=== PATIENT | male | born 1950 | race Caucasian/White ===

== ENCOUNTER 2022-12-27 05:28 | Outpatient (CLI) | payer MEDICARE, OTHER ==
[~2022-12-27] VITALS: Ht 180.3 cm; Wt 94.5 kg
[~2022-12-27 05:28] MED LIST: ACHD5005; ALBU8.5H4 IH; ASCO500T20 GT; ASP81TEC PO; ASPI-1238 PO; BENZ100C18 PO; CARV12.5 PO; CARV25TA PO; CHOL500049 PO; CIPR-225 PO; CLPD75T PO; CNC1KV IJ; D50KC PO; FENO145T PO; FENO145T2 PO; FENO145T26 PO; HYDR-3455 PO; LRT10T; MAGN400T39 PO; MELO7.5T46 PO; MULT-1029 PO; MULT-1030 PO; OMEG-131 PO; OMEG1CAP51 PO; RT-ALBUINH IH; SERT50TA9 PO; SILD100T PO; SITA1TAB2 PO; SITA1TAB6 PO; SMV10T PO; TEST90SO TD; TRM50T PO; UBID1CAP51 PO; UBID1CAP53 PO; VITA-198 PO; VNL75T PO; ZINC50TA51 PO
[2022-12-27] MEDS ORDERED: NITR0.4T39 SL (16:26)
[2022-12-27] MEDS ORDERED: HYDR500C2 PO ×2 (16:26)
[2022-12-27] MEDS ORDERED: ROSU40TA23 PO (16:26)
[2022-12-27] MEDS ORDERED: DOXY100T2 PO (16:26)
[2022-12-27] MEDS ORDERED: FLUT1BLS3 IH (16:26)
[2022-12-27] MEDS ORDERED: LOSA50TA63 PO (16:26)
== END 2022-12-27 17:00 | disposition home or self-care (01) ==
LOC: EDBD 05:28 → PREOP 05:28
PROVIDERS: ATTEND Otolaryngology Otolaryngology/Facial Plastic Surgery
DX: Z01.818 Encounter for other preprocedural examination (principal)

== ENCOUNTER 2023-01-03 06:16 | Day surgery (SDC) | payer MEDICARE, OTHER ==
[2023-01-03] VITALS (9 sets, daily range): BP systolic 81–117; BP diastolic 40–65
[~2023-01-03] VITALS: Ht 180.3 cm; Wt 94.5 kg
[~2023-01-03 06:16] MED LIST changes: +DOXY100T2 PO; +FLUT1BLS3 IH; +HYDR500C2 PO; +LOSA50TA63 PO; +NITR0.4T39 SL; +ROSU40TA23 PO
--- NOTE | 2023-01-03 06:53 | Progress Note-Pre Operative ---
Pre-Operative Progress Note Date of Available H&P: Jan 03, 2023 Date H&P Reviewed: Jan 03, 2023 Time H&P Reviewed: 06:30 History & Physical: H&P Reviewed, Patient Examed, No changes noted Changes from last HP none Pre-Operative Diagnosis: Right Vocal crod Lesion, Hoarseness ISAIAH SHELBY MD Jan 03, 2023 06:53
--- NOTE | 2023-01-03 06:54 | Progress Note-Post Operative ---
Post-Operative Progess Note Surgeon (s)/Health And Fitness Professor (s) Surgeon ISAIAH SHELBY MD Health And Fitness Professor n/a Pre-Operative Diagnosis Right Vocal crod Lesion, Hoarseness Post-Operative Diagnosis same Post-Op Procedure Note Date of Procedure: Jan 03, 2023 Name of Procedure Performed: Direct Laryngosocpy with REmoval of Right Vocal Cord Lesion Description & Findings Description and Findings: n/a Anesthesia Type get Estimated Blood Loss minimal Packing none. Specimen(s) collected/removed right vocal cord lesion to pathology ISAIAH SHELBY MD Jan 03, 2023 06:54
[2023-01-03] MEDS ORDERED: PROMETHAZINE INJ 25 MG/ML VIAL IV PRN (07:00)
[2023-01-03] MEDS ORDERED: HYDROcodone/ACETAMINOPHEN 5 MG/325 MG TABLET PO PRN (07:00)
[2023-01-03 07:20] LABS: POTASSIUM 4.3 MMOL/L (3.6-5.0)
[2023-01-03 07:21] LABS: CALCIUM 9.6 MG/DL (8.5-10.1)
[2023-01-03 07:24] LABS: BASOPHILS # (AUTO) 0.1 10^3/uL (0.0-0.1); BASOPHILS % (AUTO) 1 % (0-10); EOSINOPHILS # (AUTO) 0.2 10^3/uL (0.0-0.3); EOSINOPHILS % (AUTO) 2 % (0-10); HEMATOCRIT 42 % (40-54); HEMOGLOBIN 13.8 g/dL (13.3-17.7); LYMPHOCYTES # (AUTO) 1.6 10^3/uL (1.0-4.0); LYMPHOCYTES % (AUTO) 21 % (12-44); MEAN CORPUSCULAR HEMOGLOBIN 36 pg (25-34); MEAN CORPUSCULAR HGB CONC 33 g/dL (32-36); MEAN CORPUSCULAR VOLUME 109 fL (80-99); MEAN PLATELET VOLUME 9.9 fL (9.0-12.2); MONOCYTES # (AUTO) 0.6 10^3/uL (0.0-1.0); MONOCYTES % (AUTO) 8 % (0-12); NEUTROPHILS # (AUTO) 5.1 10^3/uL (1.8-7.8); NEUTROPHILS % (AUTO) 66 % (42-75); PLATELET COUNT 325 10^3/uL (130-400); WHITE BLOOD COUNT 7.7 10^3/uL (4.3-11.0)
[2023-01-03 07:26] LABS: CREATININE SERUM 1.2 MG/DL (0.60-1.30)
[2023-01-03] MEDS ORDERED: LACTATED RINGERS 1,000 ML 1,000 ML IV PRN (07:30)
[2023-01-03] MEDS ORDERED: SEVOFLURANE (ULTANE) 15 ML INHAL SOLN ONE (07:34)
[2023-01-03] MEDS ORDERED: proPOfol INJECTION 200 MG/20 ML VIAL IV ONE (07:34)
[2023-01-03] MEDS ORDERED: LIDOCAINE PF 2% 5 ML VIAL ONE (07:34)
[2023-01-03] MEDS ORDERED: ONDANSETRON INJECTION 4 MG/2 ML (SDV) ONE (07:34)
[2023-01-03] MEDS ORDERED: fentaNYL INJECTION 100 MCG/2 ML VIAL ONE (07:35)
[2023-01-03] MEDS ORDERED: MIDAZOLAM INJ 2 MG/2 ML VIAL ONE ×2 (07:35→07:37)
[2023-01-03] MEDS ORDERED: LIDOCAINE 1% w/EPI 1:100,000 20 ML VIAL ONE (07:41)
[2023-01-03] MEDS ORDERED: ONDANSETRON INJECTION 4 MG/2 ML (SDV) IVP PRN (07:45)
[2023-01-03] MEDS ORDERED: MEPERIDINE INJ 50 MG/ML VIAL IVP ONE (07:45)
[2023-01-03] MEDS ORDERED: morphine INJ 10 MG/ML 1ML (SYR OR VIAL) IVP ONE (07:45)
[2023-01-03] MEDS ORDERED: fentaNYL INJECTION 100 MCG/2 ML VIAL IVP ONE (07:45)
[2023-01-03] MEDS ORDERED: dexAMETHasone INJ 10 MG/ML 1 ML VIAL ONE (07:59)
[2023-01-03] MEDS ORDERED: PHENYLEPHRINE 100 MCG/ML 10 ML (ANESTHESIA) SYR ONE (08:04)
--- NOTE | 2023-01-03 08:19 | Anesthesia-General Post-Op ---
General Patient Condition Mental Status/LOC: Same as Preop Cardiovascular: Satisfactory Nausea/Vomiting: Absent Respiratory: Satisfactory Pain: Controlled Complications: Absent Post Op Complications Complications None Follow Up Care/Instructions Patient Instructions None needed. Anesthesia/Patient Condition Patient Condition Patient is doing well, no complaints, stable vital signs, no apparent adverse anesthesia problems. No complications reported per nursing. BHARAT POOLE CRNA Jan 03, 2023 08:19
[2023-01-03] MEDS ORDERED: SUCCINYLCHOLINE INJ 20 MG/1 ML 10 ML VIAL ONE (08:24)
[2023-01-03] MEDS ORDERED: ACHD5005 PO (09:16)
== END 2023-01-03 10:04 ==
LOC: EDBD → SDC 06:16
PROVIDERS: ATTEND Otolaryngology Otolaryngology/Facial Plastic Surgery
DX: J38.3 Other diseases of vocal cords (principal); R49.0 Dysphonia; E66.9 Obesity, unspecified; F17.210 Nicotine dependence, cigarettes, uncomplicated; Z68.29 Body mass index [BMI] 29.0-29.9, adult
CPT/HCPCS: 36415; 80048; 82947; 85025; 87081; 88305; 93005

== ENCOUNTER → 2023-01-15 | Outpatient (CLI) | payer MEDICARE, OTHER ==
[~2023-01-15] MED LIST changes: +ACHD5005 PO
--- NOTE | 2023-01-15 11:50 | Diagnostic Imaging Report ---
CT Lung Screening INDICATION:Screening for lung cancer, 40 pack year history of smoking, current smoker TECHNIQUE: Noncontrast, low-dose CT imaging performed according to the lung cancer screening protocol. Auto Exposure Controls were utilize during the CT exam to meet ALARA standards for radiation dose reduction. COMPARISON:None available, baseline examination. FINDINGS:No pathologically enlarged lymph nodes within the chest. Advanced coronary artery calcifications versus stents. Additional mild scattered vascular calcifications also noted. No aneurysmal dilatation of the thoracic aorta. The heart is within normal limits in size. No significant pericardial effusion. No pleural effusion. The trachea is patent. No pneumothorax. Mild background emphysematous changes. Subpleural reticular opacities are present. Calcified granuloma within the left upper lobe. 0.6 x 0.5 cm pleural-based left lower lobe pulmonary nodule, series 2, image 100. 0.6 x 0.4 cm right lower lobe pulmonary nodule, series 2, image 168.Cholecystectomy. The visualized upper abdomen is otherwise unremarkable. Scattered osseous degenerative changes without acute osseous abnormality. IMPRESSION:Mild background fibroemphysematous changes with associated sub-0.6 cm bilateral pulmonary nodules. Coronary artery stents versus advanced calcifications within the coronary arteries. LUNG-RADS CATEGORY:2: Benign appearance or behavior MODIFIER:S: Mild background fibroemphysematous changes Followup: Low-dose CT of the chest in 12 months. Dictated by: Dictated on workstation # [id number]
== END ==
LOC: RAD 10:31
PROVIDERS: ATTEND Family Medicine
DX: Z12.2 Encounter for screening for malignant neoplasm of respiratory organs (principal); J43.9 Emphysema, unspecified; R91.8 Other nonspecific abnormal finding of lung field; F17.200 Nicotine dependence, unspecified, uncomplicated
CPT/HCPCS: 71271

== ENCOUNTER 2023-03-04 10:14 | Outpatient (RCR) | payer MEDICARE, OTHER ==
[2023-02-27 15:46] LABS: BASOPHILS # (AUTO) 0.1 10^3/uL (0.0-0.1); BASOPHILS % (AUTO) 1 % (0-10); EOSINOPHILS # (AUTO) 0.2 10^3/uL (0.0-0.3); EOSINOPHILS % (AUTO) 2 % (0-10); HEMATOCRIT 39 % (40-54); HEMOGLOBIN 13.1 g/dL (13.3-17.7); LYMPHOCYTES % (AUTO) 21 % (12-44); MEAN CORPUSCULAR HEMOGLOBIN 36 pg (25-34); MEAN CORPUSCULAR HGB CONC 33 g/dL (32-36); MEAN CORPUSCULAR VOLUME 109 fL (80-99); MEAN PLATELET VOLUME 9.9 fL (9.0-12.2); MONOCYTES # (AUTO) 0.7 10^3/uL (0.0-1.0); MONOCYTES % (AUTO) 7 % (0-12); NEUTROPHILS # (AUTO) 6.6 10^3/uL (1.8-7.8); NEUTROPHILS % (AUTO) 68 % (42-75); PLATELET COUNT 434 10^3/uL (130-400); WHITE BLOOD COUNT 9.7 10^3/uL (4.3-11.0)
[2023-02-27 16:02] LABS: ALBUMIN 3.9 GM/DL (3.2-4.5); BILIRUBIN,TOTAL 0.4 MG/DL (0.1-1.0); CALCIUM 9.2 MG/DL (8.5-10.1); CREATININE SERUM 1.22 MG/DL (0.60-1.30); POTASSIUM 4.1 MMOL/L (3.6-5.0); TOTAL PROTEIN 7.2 GM/DL (6.4-8.2)
== END 2023-03-12 | disposition home or self-care (01) ==
LOC: EDBD → ONC 10:14
PROVIDERS: ATTEND Internal Medicine Hematology & Oncology
DX: D45 Polycythemia vera (principal); D64.9 Anemia, unspecified; I10 Essential (primary) hypertension; E11.9 Type 2 diabetes mellitus without complications; J44.9 Chronic obstructive pulmonary disease, unspecified; Z72.0 Tobacco use
CPT/HCPCS: 36415; 80053; 82728; 83540; 83550; 85025; 99214

== ENCOUNTER 2023-04-01 10:14 | Outpatient (RCR) | payer MEDICARE, OTHER ==
[2023-03-27 09:28] LABS: BASOPHILS # (AUTO) 0.2 10^3/uL (0.0-0.1); BASOPHILS % (AUTO) 2 % (0-10); EOSINOPHILS # (AUTO) 0.2 10^3/uL (0.0-0.3); EOSINOPHILS % (AUTO) 3 % (0-10); HEMATOCRIT 48 % (40-54); HEMOGLOBIN 15.1 g/dL (13.3-17.7); LYMPHOCYTES # (AUTO) 1.8 10^3/uL (1.0-4.0); LYMPHOCYTES % (AUTO) 20 % (12-44); MEAN CORPUSCULAR HEMOGLOBIN 35 pg (25-34); MEAN CORPUSCULAR HGB CONC 32 g/dL (32-36); MEAN CORPUSCULAR VOLUME 112 fL (80-99); MEAN PLATELET VOLUME 9.8 fL (9.0-12.2); MONOCYTES # (AUTO) 0.8 10^3/uL (0.0-1.0); MONOCYTES % (AUTO) 9 % (0-12); NEUTROPHILS % (AUTO) 66 % (42-75); PLATELET COUNT 473 10^3/uL (130-400); WHITE BLOOD COUNT 9.1 10^3/uL (4.3-11.0)
[2023-03-27 09:51] LABS: ALBUMIN 4.5 GM/DL (3.2-4.5); BILIRUBIN,TOTAL 0.5 MG/DL (0.1-1.0); CALCIUM 10.2 MG/DL (8.5-10.1); CREATININE SERUM 1.33 MG/DL (0.60-1.30); POTASSIUM 4.5 MMOL/L (3.6-5.0); TOTAL PROTEIN 8.4 GM/DL (6.4-8.2)
== END 2023-04-11 | disposition home or self-care (01) ==
LOC: ONC 10:14
PROVIDERS: ATTEND Internal Medicine Hematology & Oncology
DX: D45 Polycythemia vera (principal); D64.9 Anemia, unspecified; I10 Essential (primary) hypertension; E11.9 Type 2 diabetes mellitus without complications; J44.9 Chronic obstructive pulmonary disease, unspecified; Z72.0 Tobacco use
CPT/HCPCS: 36415; 80053; 82728; 83540; 83550; 85025; 99214